=== PATIENT | female | born 1980 | race Caucasian/White ===

== ENCOUNTER → 2021-02-11 | Outpatient (CLI) | payer BC ==
--- NOTE | 2021-02-17 09:44 | RAD ---
BILATERAL DIGITAL SCREENING 2-D AND 3-D MAMMOGRAM INDICATION: Routine screening. COMPARISON: 02/22/2015 Interpretation was made using CAD. FINDINGS: Breast Density: There are scattered areas of fibroglandular density. RIGHT BREAST: No suspicious masses, calcifications or areas of architectural distortion are seen. LEFT BREAST: There is a 7 mm circumscribed asymmetry in the periareolar upper breast. No suspicious c alcifications or architectural distortion. IMPRESSION: 1. Left upper periareolar breast circumscribed asymmetry measuring approximately 7 mm. ASSESSMENT: BI-RADS 0: Incomplete -- Need Additional Imaging Evaluation and/or Prior Mammograms for C omparison. RECOMMENDATION: Diagnostic left breast ultrasound. The facility will notify the patient of the results via mail. Patient information will be entered int o the mammography reminder system with a target recall date for the next mammogram. A reminder letter will be generated by the facility. Electronically signed by: Arvind Sal MD (02/17/2021 9:42 AM) [id number]
== END ==
LOC: MAMMO 15:10
PROVIDERS: ATTEND Obstetrics & Gynecology
DX: Z12.31 Encounter for screening mammogram for malignant neoplasm of breast (principal)
CPT/HCPCS: 77063; 77067

== ENCOUNTER → 2021-02-24 | Outpatient (CLI) | payer BC ==
--- NOTE | 2021-02-24 15:32 | RAD ---
EXAM: Left breast ultrasound. HISTORY: Nodule on mammographic screening. Additional imaging is requested. COMPARISON: 02/11/2021. FINDINGS: Sonography of the left periareolar breast was performed at the site of concern. There is no sonographic correlate for the suggested small nodule laterally on mammography. Only geovany l parenchyma is seen. Images of the left axilla reveal no suspicious lymph nodes. IMPRESSION: 1. BI-RADS Category 1: Negative. 2. Resume bilateral screening mammography in one year. Electronically signed by: Uche Lara MD (02/24/2021 3:30 PM) [id number]
== END ==
LOC: US 14:46
PROVIDERS: ATTEND Family Medicine
DX: R92.2 Inconclusive mammogram (principal)
CPT/HCPCS: 76642

== ENCOUNTER 2021-03-29 20:04 | Emergency (ER) | payer BC ==
[~2021-03-29] VITALS: Ht 162.6 cm; Wt 131.3 kg
--- NOTE | 2021-03-29 20:12 | PHYS DOC ---
Past History Past Medical History: Kidney Stones, UTI General Adult HPI: HPI: "... Got this pain here in my Lt flank...and lower in my abdomen.. " Patient is a 41 year old female who presents with above hx and complaints left flank and lower abdomen pain. Patient denies any trauma. Patient denies any problems with defecation or urination. Patient denies any history of constipation. Patient denies any fever or chills. No history of travel. No history immunosuppression. Does have a medical history of multiple sclerosis. Patient normally follows with Dr. Chacon Review of Systems: Review of Systems: Constitutional: Denies fever or chills Eyes: Denies change in visual acuity HENT: Denies nasal congestion or sore throat Respiratory: Denies cough or shortness of breath Cardiovascular: Denies chest pain or edema GI: Complains of left flank abdominal pain, nausea,. Denies vomiting, bloody stools or diarrhea : Denies dysuria Musculoskeletal: Complains of left back pain Integument: Denies rash Neurologic: Denies headache, focal weakness or sensory changes Endocrine: Denies polyuria or polydipsia Lymphatic: Denies swollen glands Psychiatric: Denies depression or anxiety Family History: Family History: Noncontributory to presentation Current Medications: Current Meds: See nursing for home meds Allergies: Allergies: Allergic to penicillin and sulfa and erythromycin Physical Exam: PE: Constitutional: , in acute distress, non-toxic appearance. [] HENT: Normocephalic, atraumatic, bilateral external ears normal, oropharynx moist, no oral exudates, nose normal. [] Eyes: PERRLA, EOMI, conjunctiva normal, no discharge. [] Neck: Normal range of motion, no tenderness, supple, no stridor. [] Cardiovascular: Tachycardia heart rate regular rhythm, no murmur [] Lungs & Thorax: Bilateral breath sounds equal apex auscultation [] Abdomen: Bowel sounds creased, soft, left flank tenderness, no masses, no pulsatile masses. [] Skin: Warm, dry, no erythema, no rash. [] Back: No tenderness, left CVA tenderness. [] Extremities: No tenderness, no cyanosis, no clubbing, ROM intact, no edema. [] Neurologic: Alert and oriented X 3, normal motor function, normal sensory function, no focal deficits noted. [] Psychologic: Affect normal, judgement normal, mood normal. [] EKG: EKG: [] Radiology/Procedures: Radiology/Procedures: [][address] [address] IMAGING REPORT Signed PATIENT: IVAN ALFARO ACCOUNT: [id number] : 1980 LOCATION: ER AGE: 41 SEX: F EXAM STATUS: REG ER ORD. PHYSICIAN: MALCOLM LANDIS MD REASON: Left sided pain- flank, nausea, vomiting PROCEDURE: CT ABDOMEN PELVIS WO CONTRAST INDICATION: Reason: Left sided pain- flank, nausea, vomiting / Spl. Instructions: / History: COMPARISON: None. TECHNIQUE: Axial CT images were obtained through the abdomen and pelvis without intravenous contrast. One or more of the following individualized dose reduction techniques were utilized for this examination: 1. Automated exposure control; 2. Adjustment of the mA and/or kV according to patient size; 3. Use of iterative reconstruction technique. FINDINGS: There are some enlarged lymph nodes in the groin bilaterally. Vascular: No abdominal aortic aneurysm. Hepatobiliary: No intrahepatic biliary duct dilation. Pancreas: No peripancreatic edema. Spleen: Spleen unremarkable. Renal/Bladder: Mild left-sided hydronephrosis and hydroureter with adjacent edema and 4 mm left distal ureter stone. Urinary bladder has minimal urine within it at time of exam with prominence of wall. Gastrointestinal: There is some air-filled distention of portions of the colon with some prominent stool seen proximally as well. No periappendiceal inflammatory changes. There is some degenerative changes of the spine with osteophyte formation. Mild wedging of T12 and T11 vertebral body. IMPRESSION: * Left-sided hydronephrosis and hydroureter with adjacent edema to the fat and a left distal ureter stone. * Urinary bladder is decompressed with prominence the wall which could be from lack of distention but would correlate with symptoms to ensure there is not a pathologic cause such as mild cystitis contributing. * The colon is somewhat distended with gas and stool. Electronically signed by: Juan Walls MD (03/29/2021 11:22 PM) DESKTOP- [id number] DICTATED AND SIGNED BY: JUAN WALLS MD DATE: 03/29/21 [id number] CC: MALCOLM LANDIS MD; CALLUM CHACON ~MTH0 0 Heart Score: C/O Chest Pain: N/A Risk Factors: Risk Factors: DM, Current or recent (<one month) smoker, HTN, HLP, family history of CAD, obesity. Risk Scores: Score 0 - 3: 2.5% MACE over next 6 weeks - Discharge Home Score 4 - 6: 20.3% MACE over next 6 weeks - Admit for Clinical Observation Score 7 - 10: 72.7% MACE over next 6 weeks - Early Invasive Strategies Course & Med Decision Making: Course & Med Decision Making Pertinent Labs and Imaging studies reviewed. (See chart for details) Take Tylenol ibuprofen for pain. Take Zofran as needed for nausea and vomiting. Take Flomax daily. Follow-up with primary. Follow-up with urology if you do not have urology follow-up with Dr.Braddley Locke [phone] Impression: 1. Left flank back pain- Renal Colic 2. Lt. Distal 4 mm UVJ kidney stone with hydronephrosis and hydroureter 3. Hematuria [] Dragon Disclaimer: Dragon Disclaimer: This electronic medical record was generated, in whole or in part, using a voice recognition dictation system. Departure Departure: Referrals: CALLUM CHACON (PCP) Scripts Hydrocodone/Ibuprofen (HYDROCODONE-IBUPROFEN 7.5-200 ) 1 Each Tablet 1 TAB PO PRN Q6HRS PRN for PAIN, #30 TAB 0 Refills Prov: MALCOLM LANDIS MD 03/29/21 Ondansetron Hcl (ZOFRAN) 4 Mg Tablet 4 MG PO QID for nv, #30 TAB Prov: MALCOLM LANDIS MD 03/29/21 Tamsulosin Hcl (FLOMAX) 0.4 Mg Cap.er.24h 0.4 MG PO DAILY for kidney stone, #30 CAP.SR Prov: MALCOLM LANDIS MD 03/29/21 Dragon Disclaimer This chart was dictated in whole or in part using Voice Recognition software in a busy, high-work load, and often noisy Emergency Department environment. It may contain unintended and wholly unrecognized errors or omissions. Dragon Disclaimer This chart was dictated in whole or in part using Voice Recognition software in a busy, high-work load, and often noisy Emergency Department environment. It may contain unintended and wholly unrecognized errors or omissions. MALCOLM LANDIS MD Mar 29, 2021 20:12
[2021-03-29] MEDS ORDERED: ONDANSETRON ODT 4 MG TAB.RAPDIS PO ONE (20:15)
[2021-03-29] MEDS ORDERED: KETOROLAC 30 MG/ML VIAL. IVP ONE (21:30)
[2021-03-29] MEDS ORDERED: IV RINGERS SOLUTION,LACTATED 1,000 ML IV SCH (21:30)
[2021-03-29] MEDS ORDERED: FAMOTIDINE 20 MG/2 ML VIAL IVP ONE (21:30)
[2021-03-29] MEDS ORDERED: ONDANSETRON PF 4 MG/2 ML VIAL. IVP ONE (21:30)
[2021-03-29 22:00] LABS: COLOR,URINE YELLOW
[2021-03-29 22:01] LABS: BACTERIA,URINE FEW /HPF (0-FEW); BILIRUBIN,URINE NEG (NEG); CLARITY,URINE HAZY; GLUCOSE,URINE NEG (NEG); NITRITE,URINE NEG (NEG); SQUAMOUS EPITHELIAL CELL,UR FEW /LPF; UROBILINOGEN,URINE 0.2 mg/dL (0.2 mg/dL); WBC,URINE 0 /HPF (0-4)
[2021-03-29 22:02] LABS: AMORPHOUS SEDIMENT,UR PRESENT /HPF
[2021-03-29 22:10] LABS: BARBITURATES NEG (NEG); BENZODIAZEPINES NEG (NEG); CANNABINOIDS NEG (NEG); COCAINE NEG (NEG); METHADONE NEG (NEG); OPIATES NEG (NEG); PHENCYCLIDINE NEG (NEG)
[2021-03-29 22:12] LABS: AMPHETAMINE/METHAMPHETAMINE NEG (NEG)
[2021-03-29 23:16] VITALS: BP 165/80
--- NOTE | 2021-03-29 23:24 | RAD ---
INDICATION: Reason: Left sided pain- flank, nausea, vomiting / Spl. Instructions: / History: COMPARISON: None. TECHNIQUE: Axial CT images were obtained through the abdomen and pelvis without intravenous contrast. One or more of the following individualized dose reduction techniques were utilized for this examinat ion: 1. Automated exposure control; 2. Adjustment of the mA and/or kV according to patient size; 3 . Use of iterative reconstruction technique. FINDINGS: There are some enlarged lymph nodes in the groin bilaterally. Vascular: No abdominal aortic aneurysm. Hepatobiliary: No intrahepatic biliary duct dilation. Pancreas: No peripancreatic edema. Spleen: Spleen unremarkable. Renal/Bladder: Mild left-sided hydronephrosis and hydroureter with adjacent edema and 4 mm left dista l ureter stone. Urinary bladder has minimal urine within it at time of exam with prominence of wall. Gastrointestinal: There is some air-filled distention of portions of the colon with some prominent st ool seen proximally as well. No periappendiceal inflammatory changes. There is some degenerative changes of the spine with osteophyte formation. Mild wedging of T12 and T1 1 vertebral body. IMPRESSION: * Left-sided hydronephrosis and hydroureter with adjacent edema to the fat and a left distal ureter stone. * Urinary bladder is decompressed with prominence the wall which could be from lack of distention bu t would correlate with symptoms to ensure there is not a pathologic cause such as mild cystitis contr ibuting. * The colon is somewhat distended with gas and stool. Electronically signed by: Scar Walls MD (03/29/2021 11:22 PM) [id number]
[2021-03-29] MEDS ORDERED: TAMSULOSIN 0.4 MG CAP.ER.24H. PO ONE (23:45)
[2021-03-29] MEDS ORDERED: HYDR-1179 PO (23:53)
[2021-03-29] MEDS ORDERED: TAMS0.4C97 PO (23:53)
[2021-03-29] MEDS ORDERED: ONDA4TAB7 PO (23:53)
[2021-03-29 23:57] LABS: BASO % 0 % (0-3); EOS % 0 % (0-3); HEMATOCRIT 40.1 % (36.0-47.0); HEMOGLOBIN 13.3 g/dL (12.0-15.5); LYMPH # 0.3 x10^3/uL (1.0-4.8); LYMPH % 2 % (24-48); MEAN CORPUSCULAR HEMOGLOBIN 30 pg (25-35); MEAN CORPUSCULAR HGB CONC 33 g/dL (31-37); MEAN CORPUSCULAR VOLUME 90 fL (79-100); MONO # 0.8 x10^3/uL (0.0-1.1); MONO % 6 % (0-9); NEUT % 91 % (31-73); PLATELET COUNT 383 x10^3/uL (140-400); RED BLOOD COUNT 4.45 x10^6/uL (3.50-5.40); RED CELL DISTRIBUTION WIDTH 13.8 % (11.5-14.5); WHITE BLOOD COUNT 13.2 x10^3/uL (4.0-11.0)
[2021-03-30 00:01] LABS: CALCIUM 8.5 mg/dL (8.5-10.1); CREATININE 1.3 mg/dL (0.6-1.0); GFR 45.1; POTASSIUM 4.1 mmol/L (3.5-5.1)
[2021-03-30 00:07] LABS: ALBUMIN 3.4 g/dL (3.4-5.0); DIRECT BILIRUBIN 0.1 mg/dL (0.0-0.2); TOTAL BILIRUBIN 0.3 mg/dL (0.2-1.0); TOTAL PROTEIN 6.7 g/dL (6.4-8.2)
--- NOTE | 2021-03-30 00:34 | RAD ---
INDICATION: Reason: Left sided pain- flank, nausea, vomiting / Spl. Instructions: / History: COMPARISON: None. IMPRESSION: 3 views the chest and abdomen obtained. Cardiac silhouette is unremarkable. No definite focal airspac e consolidation. Air-filled dilated loops of bowel are seen within the abdomen most prominent at the colon. Causes such as colonic ileus within differential. Degenerative changes spine. Calcification in the bilateral hemipelvis. Could be from the patient's left ureter stone. Electronically signed by: Scar Walls MD (03/30/2021 12:32 AM) [id number]
[2021-03-30] MEDS ORDERED: MORPHINE SULFATE 10 MG/ML SYRINGE. ONE (02:04)
== END 2021-03-30 02:14 | disposition home or self-care (01) ==
LOC: ER 20:04
DX: N13.2 Hydronephrosis with renal and ureteral calculous obstruction (principal); R31.9 Hematuria, unspecified; Z87.440 Personal history of urinary (tract) infections; Z87.442 Personal history of urinary calculi; Z88.0 Allergy status to penicillin; Z88.2 Allergy status to sulfonamides; Z88.1 Allergy status to other antibiotic agents
CPT/HCPCS: 36415; 74022; 74176; 80048; 80076; 80307; 81001; 81025; 82550; 83690; 84702; 85025; 85610; 85730; 96361; 96374; 96375; 99285; J1885; J2405; J3490; J7120; Q0162